=== PATIENT | male | born 1965 | race African-American/Black ===

== ENCOUNTER 2016-06-14 11:54 | Emergency (ER) | payer BC ==
[2016-06-14 12:42] VITALS: BP 118/77
--- NOTE | 2016-06-14 12:47 | UC ---
Epistaxis Nasal HPI - HPI Summary HPI Summary: Hit in nose by another players head on soccer about 1 hour [employer]. some bleeding -- -resolved now, pt felt a crack-- - History of Current Complaint Chief Complaint: UCHeadInjury Stated Complaint: NOSE INJURY Time Seen by Provider: 06/14/16 12:46 Hx Obtained From: Patient Onset/Duration: Sudden Onset, Lasting Minutes, Still Present Timing: Constant Severity Initially: Mild Severity Currently: Mild Pain Intensity: 4 Pain Scale Used: 0-10 Numeric Character: Light Alleviating Factor(s): Ice Associated Signs And Symptoms: Positive: Negative - Allergies/Home Medications Allergies/Adverse Reactions: Allergies Allergy/AdvReac Type Severity Reaction Status Date / Time No Known Allergies Allergy Verified 01/13/16 15:03 PMH/Surg Hx/FS Hx/Imm Hx Previously Healthy: Yes Endocrine History Of: Denies: Diabetes, Thyroid Disease, Hyperthyroidism, Hypothyroidism Cardiovascular History Of: Denies: Cardiac Disorders, Hypertension, Pacemaker/ICD Respiratory History Of: Denies: COPD, Asthma GI/ History Of: Denies: Ulcer, Renal Disease Neurological History Of: Denies: TIA, Seizures Psychological History Of: Denies: Anxiety, Depression - Surgical History Surgical History: None - Family History Known Family History: Positive: None - Social History Occupation: Employed Full-time Lives: With Family Alcohol Use: None Substance Use Type: None Smoking Status (MU): Never Smoked Tobacco - Immunization History Most Recent Tetanus Shot: Unknown Review of Systems Constitutional: Negative Skin: Negative Eyes: Negative ENT: Nasal Discharge - some bleeding after injury---no bleeding at this time Respiratory: Negative Cardiovascular: Negative Gastrointestinal: Negative Genitourinary: Negative Motor: Negative Neurovascular: Negative Musculoskeletal: Arthralgia - nasal septum Neurological: Negative Psychological: Negative All Other Systems Reviewed And Are Negative: Yes Physical Exam Triage Information Reviewed: Yes Appearance: Well-Appearing, No Pain Distress, Well-Nourished Vital Signs: Initial Vital Signs Temp 98.8 F 06/14/16 12:36 Pulse 67 06/14/16 12:36 Resp 18 06/14/16 12:36 BP 118/77 06/14/16 12:36 Pulse Ox 98 06/14/16 12:36 Vital Signs Reviewed: Yes Eye Exam: Normal Eyes: Positive: Conjunctiva Clear ENT Exam: Normal ENT: Positive: Normal ENT inspection, Hearing grossly normal, TMs normal, Other : - dried blood no hematoma in nares. Negative: Nasal congestion, Nasal drainage, Tonsillar swelling, Tonsillar exudate, Trismus, Muffled/hoarse voice Dental Exam: Normal Neck exam: Normal Neck: Positive: Supple, Nontender Respiratory Exam: Normal Respiratory: Positive: Chest non-tender, No respiratory distress, No accessory muscle use Cardiovascular Exam: Normal Cardiovascular: Positive: RRR, Pulses Normal, Brisk Capillary Refill Musculoskeletal Exam: Normal Musculoskeletal: Positive: Strength Intact, ROM Intact, No Edema Neurological Exam: Normal Neurological: Positive: Alert, Muscle Tone Normal Psychological Exam: Normal Skin Exam: Normal Diagnostics - Laboratory Diagnostic Studies Completed/Ordered: no displaced nasal tip fracture Epistaxis Nasal Course/Dx - Course Course Of Treatment: Ice, tylenol, saline nasal spray, follow with plastic surgeon when swelling resolves - Differential Dx/Diagnosis Differential Diagnosis/HQI/PQRI: Polyps, Sinusitis, Trauma Provider Diagnoses: Nasal fracture, epistaxix now resolved Discharge - Discharge Plan Condition: Stable Disposition: HOME Patient Education Materials: Acetaminophen (By mouth), Nasal Fracture (ED), Ice Pack Application (ED) Referrals: Stefan Sanchez [Primary Care Provider] - Anthony Granda MD [Medical Doctor] - 1 Week
--- NOTE | 2016-06-14 13:27 | RAD ---
Indication: Nasal injury. 3 views of the nasal bone demonstrates nondisplaced fracture through the anterior nasal tip. Paranasal sinuses are unremarkable. IMPRESSION: Nondisplaced fracture through the anterior nasal tip.
== END 2016-06-14 13:45 | disposition home or self-care (01) ==
LOC: UCEAST 11:54
DX: S02.2XXA Fracture of nasal bones, initial encounter for closed fracture (principal); W21.02XA Struck by soccer ball, initial encounter
CPT/HCPCS: 70160; 99211; G0463